=== PATIENT | male | born 1985 | race Caucasian/White ===

== ENCOUNTER 2023-09-18 20:02 | Emergency (ER) | payer OTHER ==
[2023-09-18] MEDS ORDERED: Ketorolac Tromethamine 30 MG (1 mL) VIAL ONE (20:08)
[2023-09-18] MEDS ORDERED: Bupivacaine PF 0.5% 30 ML VIAL ONE (20:08)
[2023-09-18] MEDS ORDERED: Bacitracin 1 PK ONE (21:20)
== END 2023-09-18 21:28 | disposition home or self-care (01) ==
LOC: ERS 20:02
DX: S61.412A Laceration without foreign body of left hand, initial encounter (principal); Z55.6 Problems related to health literacy; W26.0XXA Contact with knife, initial encounter
CPT/HCPCS: 12001; 96374; J0665; J1885